=== PATIENT | male | born 1950 | race African-American/Black ===

== ENCOUNTER 2017-05-18 14:05 | Inpatient (IN) | payer OTHER, MEDICARE ==
[~2017-05-18] VITALS: Ht 182.9 cm; Wt 90.0 kg
[2017-05-18 14:07] VITALS: BP 103/62; PULSE 124; RESP 28; TEMP 98.9; O2SAT 92
--- NOTE | 2017-05-18 14:35 | PD ---
Physical Exam Time Seen by Provider: 14:34 Narrative 67 y/o male with dizziness, weakness, confusion for one week, worse today. One episode today of brbpr according to family members Vital signs reviewed. seen at triage desk. Awaiting bed placement. Data Data Last Documented VS Vital Signs Date Time Temp Pulse Resp B/P Pulse Ox O2 Delivery O2 Flow Rate FiO2 05/18/17 14:07 98.9 124 28 103/62 92 Room Air [facility] Medical Record Reviewed: Yes Supervised Visit with BRITTNEY: No Kaiden Borjas May 18, 2017 14:35
[2017-05-18 16:09] VITALS: BP_SYST 104; BP_SYST 125; BP_SYST 128; BP_DIAS 70; BP_DIAS 71; RESP 18; RESP 20
[2017-05-18 16:11] VITALS: BP 125/71; PULSE 114; RESP 18; O2SAT 92
[2017-05-18] MEDS ORDERED: SODIUM CHLOR 0.9% 1000 ML INJ 1,000 ML IV SCH ×2 (16:20→20:37)
[2017-05-18] MEDS ORDERED: CLON0.1T PO (16:39)
[2017-05-18] MEDS ORDERED: LANTUS2P SQ (16:39)
[2017-05-18] MEDS ORDERED: METF1000 PO (16:59)
[2017-05-18] MEDS ORDERED: LEVO.075 PO (16:59)
[2017-05-18] MEDS ORDERED: LOVA40TA PO (16:59)
[2017-05-18] MEDS ORDERED: GLIP5TAB8 PO (17:00)
[2017-05-18] MEDS ORDERED: PLAV75TA29 PO (17:00)
[2017-05-18] MEDS ORDERED: ENAL10TA PO (17:00)
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
--- NOTE | 2017-05-18 17:25 | RADRPT ---
EXAM DATE/TIME: 05/18/2017 16:40 [facility] COMPARISON: No previous studies available for comparison. INDICATIONS : Cough. MEDICAL HISTORY : Carcinoma, lung. SURGICAL HISTORY : None. ENCOUNTER: Initial ACUITY: >1 year PAIN SCORE: 0/10 LOCATION: Bilateral chest FINDINGS: There is reported history of lung carcinoma. There is an apical density on the right with volume loss presumably related to history of lung carcinoma. There is previous right thoracotomy. There is also some hazy opacity at the right lung base. Left lung relatively clear. No effusion. No pneumothorax th e heart size within normal limits. CONCLUSION: 1. Probable treated lung cancer on the right with previous right thoracotomy and persistent apical de nsity and volume loss. There is also some hazy airspace disease in the right lung base. No prior stud y for comparison. Cannot exclude residual tumor or infectious infiltrate at the right base. Junior Martell MD on May 18, 2017 at 17:21 Board Certified Radiologist. This report was verified electronically.
--- NOTE | 2017-05-18 19:39 | RADRPT ---
EXAM DATE/TIME: 05/18/2017 18:20 [facility] COMPARISON: No previous studies available for comparison. INDICATIONS : Patient complains of dizziness, confusion and weakness. RADIATION DOSE: 56.77 CTDIvol (mGy) MEDICAL HISTORY : Carcinoma, lung. SURGICAL HISTORY : cardiac surgery ENCOUNTER: Initial ACUITY: 1 day PAIN SCALE: 0/10 LOCATION: cranial TECHNIQUE: Multiple contiguous axial images were obtained of the head. Using automated exposure control and adj ustment of the mA and/or kV according to patient size, radiation dose was kept as low as reasonably a chievable to obtain optimal diagnostic quality images. DICOM format image data is available electro nically for review and comparison. FINDINGS: CEREBRUM: The ventricles are normal for age. No evidence of midline shift, mass lesion, hemorrhage or acute in farction. No extra-axial fluid collections are seen. POSTERIOR FOSSA: The cerebellum and brainstem are intact. The 4th ventricle is midline. The cerebellopontine angle i s unremarkable. EXTRACRANIAL: The visualized portion of the orbits is intact. SKULL: The calvaria is intact. No evidence of skull fracture. CONCLUSION: Negative noncontrast CT brain. Eric Jackson MD on May 18, 2017 at 19:35 Board Certified Radiologist. This report was verified electronically.
[2017-05-18 20:28] LABS: AUTOMATED NEUTROPHIL # 11.5 TH/MM3 (1.8-7.7); BASOPHIL % 0.1 % (0.0-2.0); HEMATOCRIT 34.6 % (39.0-51.0); HEMO FLAGS DIFF FINAL; LYMPH % 5.8 % (9.0-44.0); LYMPHOCYTE # 0.8 TH/MM3 (1.0-4.8); MEAN CELL VOLUME 81.2 FL (80.0-100.0); MEAN CORPUSCULAR HEMOGLOBIN 26.7 PG (27.0-34.0); MEAN CORPUSCULAR HGB CONC 32.8 % (32.0-36.0); MONO % 6.5 % (0.0-8.0); NEUT % 87.6 % (16.0-70.0); PLATELET COUNT 332 TH/MM3 (150-450); RED BLOOD COUNT 4.26 MIL/MM3 (4.50-5.90); RED CELL DISTRIBUTION WIDTH 15.3 % (11.6-17.2); WHITE BLOOD COUNT 13.1 TH/MM3 (4.0-11.0)
[2017-05-18 20:35] LABS: ANION GAP 11 MEQ/L (5-15); AST (GOT) 9 U/L (15-37); BICARBONATE 24.6 MEQ/L (21.0-32.0); BLOOD UREA NITROGEN 24 MG/DL (7-18); CHLORIDE 99 MEQ/L (98-107); GLOMERULAR FILTRATION RATE 56 ML/MIN (>89); POTASSIUM 3.5 MEQ/L (3.5-5.1); SODIUM (NA) 135 MEQ/L (136-145)
[2017-05-18] MEDS ORDERED: cefTRIAXone INJ 1,000 MG in SODIUM CHLORIDE 0.9% INJ 25 ML IV ONE (20:45)
[2017-05-18 20:46] LABS: ALKALINE PHOSPHATASE 71 U/L (45-117); ALT (GPT) 9 U/L (12-78)
[2017-05-18 20:47] LABS: APTT (PATIENT) 27.3 SEC (24.3-30.1); INTERNATIONAL NORMALIZED RATIO 1.3 RATIO; PROTHROMBIN TIME - PATIENT 14.6 SEC (9.8-11.6)
[2017-05-18 21:09] LABS: BLOOD, URINE NEG (NEG); GLUCOSE,URINE TRACE mg/dL (NEG); HYALINE CAST, URINE 2 /lpf (RARE); KETONE, URINE 10 mg/dL (NEG); MUCUS URINE FEW /lpf (OCC); NITRITE,URINE NEG (NEG); PH, URINE 5.5 (5.0-8.5); SQUAMOUS EPITHELIAL CELL URINE 1 /hpf (0-5)
[2017-05-18 21:11] LABS: URINE COLOR ORANGE (YELLW/STRAW)
[2017-05-18 21:12] LABS: COMMENT (UR) CULT NOT INDICATED; CULTURE IF INDICATED CULT NOT INDICATED
[2017-05-18 21:14] LABS: CREATINE KINASE 72 U/L (39-308)
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
[2017-05-18] MEDS ORDERED: IOHEXOL 350 MG/ML 10 ML VIAL (for RAD DIAG) IV ONE (21:57)
--- NOTE | 2017-05-18 22:14 | RADRPT ---
EXAM DATE/TIME: 05/18/2017 21:41 [facility] COMPARISON: CHEST SINGLE AP, May 18, 2017, 16:40. INDICATIONS : Syncopal episode. IV CONTRAST: 65 cc Omnipaque 350 (iohexol) IV RADIATION DOSE: 20.17 CTDIvol (mGy) MEDICAL HISTORY : Carcinoma, lung. SURGICAL HISTORY : None. ENCOUNTER: Initial ACUITY: 1 day PAIN SCALE: 0/10 LOCATION: chest TECHNIQUE: Volumetric scanning of the chest was performed using a pulmonary embolism protocol MIP images were re constructed. Using automated exposure control and adjustment of the mA and/or kV according to patien t size, radiation dose was kept as low as reasonably achievable to obtain optimal diagnostic quality images. DICOM format image data is available electronically for review and comparison. Follow-up recommendations for incidentally detected pulmonary nodules are based at a minimum on nodul e size and patient risk factors according to Fleischner Society Guidelines. FINDINGS: PULMONARY ARTERIES: No filling defects are seen in the pulmonary arteries through the segmental level. LUNGS: History of right lung carcinoma with interstitial opacities medially in the upper and midlung, consol idation medially, and an elongated cavitary area posterior medial extending from the upper chest down to the level of the oanh. There is irregular thickened wall about this is cavitation and multiple calcifications scattered throughout. There is deformity of the adjacent ribs. In the right lower l obe, there are prominent areas of consolidation occupying most of the posterior segments and a smalle r patchy infiltrate in the lateral right midlung. The left lung appears clear. PLEURAE: There is no pleural thickening or pleural effusion. MEDIASTINUM: The subcarinal node is enlarged at 2.2 cm. There is diffuse thickening of the wall of the esophagus. Coronary artery calcifications. CONCLUSION: 1. The study is negative for pulmonary embolism. 2. History of right lung cancer with consolidative interstitial opacities in the medial right chest s uggesting radiation pneumonitis. Which in this area, however, there is a elongated area of cavitatio n with thick wall. 3. Multiple areas of consolidative infiltrate in the right lower lobe and in the lateral right lung. 4. Several enlarged middle mediastinal nodes. Eric Jackson MD on May 18, 2017 at 22:06 Board Certified Radiologist. This report was verified electronically.
[2017-05-18] MEDS ORDERED: AZITHROMYCIN INJ 500 MG in SODIUM CHLOR 0.9% 250 ML INJ 250 ML IV ONE (22:30)
[2017-05-18 23:00] VITALS: BP 108/77; PULSE 96; RESP 20; O2SAT 96
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
[2017-05-18] MEDS ORDERED: ACETAMINOPHEN/HYDROcodone 325 MG/5 MG TAB PO PRN (23:15)
[2017-05-18] MEDS ORDERED: SENNOSIDES 8.6 MG TAB PO PRN (23:15)
[2017-05-18] MEDS ORDERED: LACTULOSE SYRUP 20 GM/30 ML CUP PO PRN (23:15)
[2017-05-18] MEDS ORDERED: SODIUM CHLORIDE 0.9% FLUSH 10 ML FLUSH IV FLUSH PRN (23:15)
[2017-05-18] MEDS ORDERED: MAGNESIUM HYDROXIDE SUSP 30 ML CUP PO PRN (23:15)
[2017-05-18] MEDS ORDERED: GLUCAGON 1 MG/ML VIAL OTHER PRN (23:15)
[2017-05-18] MEDS ORDERED: ACETAMINOPHEN/HYDROcodone 325 MG/10 MG TAB PO PRN (23:15)
[2017-05-18] MEDS ORDERED: ONDANSETRON HCL 4 MG/2 ML VIAL IVP PRN (23:15)
[2017-05-18] MEDS ORDERED: ACETAMINOPHEN 325 MG TAB PO PRN (23:15)
[2017-05-18] MEDS ORDERED: DEXTROSE 50% IN WATER 50 ML VIAL(D50) IV PRN (23:15)
[2017-05-18] MEDS ORDERED: BISACODYL 10 MG SUPP RECTAL PRN (23:15)
[2017-05-19] VITALS (7 sets, daily range): BP systolic 110–151; BP diastolic 64–72; PULSE 88–116; RESP 20–22; TEMP 97.5–99.6; O2SAT 91–95
[2017-05-19] MEDS: SODIUM CHLOR 0.9% 1000 ML INJ 1,000 ML IV SCH ×3 (00:23→19:02)
[2017-05-19] MEDS: INSULIN ASPART SUPPLEMENTAL SCALE SQ SCH ×4 (06:12→22:20)
[2017-05-19] MEDS: SODIUM CHLORIDE 0.9% FLUSH 10 ML FLUSH IV FLUSH SCH ×2 (09:00→21:00)
[2017-05-19] MEDS: DOCUSATE SODIUM 50 MG/SENNA 8.6 MG TAB PO SCH ×2 (09:43→21:00)
[2017-05-19] MEDS: guaiFENesin E.R. 600 MG TAB PO SCH ×2 (09:43→22:16)
[2017-05-19] MEDS: HEPARIN SODIUM - SQ 10,000 UNITS/ML VIAL SQ SCH ×2 (09:44→22:15)
[2017-05-19] MEDS: RESP: ALBUTEROL 2.5 MG/IPRATROPIUM 0.5 MG NEB (PRN) NEB ×3 (10:02→20:46)
[2017-05-19] MEDS: BUDESONIDE-FORMOTEROL 160/4.5 MCG INHALER INH SCH ×2 (11:44→21:00)
--- NOTE | 2017-05-19 12:07 | EKG ---
Date Performed: 05/18/2017 Time Performed: 16:23:41 PTAGE: 67 years EKG: Sinus tachycardia MODERATE VOLTAGE CRITERIA FOR LVH, CONSIDER NORMAL VARIANT MODERATE T-WAV E ABNORMALITY, CONSIDER LATERAL ISCHEMIA ABNORMAL ECG PREVIOUS TRACING : 04/04/1996 14.17 No change compared to prior study. DOCTOR: David Cadena Interpretating Date/Time 05/19/2017 12:06:38
--- NOTE | 2017-05-19 13:05 | HHI.PR ---
Subjective Remarks Follow-up for pneumonia Shortness of breath is better, dizziness has resolved, confusion is better. Still with generalized weakness, still coughing. Objective Vitals Vital Signs Date Time Temp Pulse Resp B/P Pulse Ox O2 Delivery O2 Flow Rate FiO2 05/19/17 12:00 98.4 105 20 130/72 95 05/19/17 08:00 97.5 96 20 117/64 95 05/19/17 04:00 97.7 88 22 110/69 94 05/19/17 00:00 98.2 104 22 116/68 94 05/19/17 00:00 95 18 120/65 94 Nasal Cannula 2 05/18/17 23:00 96 20 108/77 96 Nasal Cannula 2 05/18/17 16:11 114 18 125/71 92 Room Air 05/18/17 16:11 113 20 92 Room Air 05/18/17 16:09 124 20 128/70 126 20 104/71 113 18 125/71 05/18/17 14:07 98.9 124 28 103/62 92 Room Air I/O 05/18/17 05/18/17 05/18/17 05/19/17 05/19/17 05/19/17 06:59 14:59 22:59 06:59 14:59 22:59 Intake Total 1034 ml 120 ml Output Total 125 ml Balance 909 ml 120 ml Intake Oral 240 ml 120 ml IV Total 794 ml Output Urine Total 125 ml Result Diagram: 05/18/17193405/18/171934 Objective Remarks Not in distress, well-nourished, looks stated age PERRL, pink conjunctiva without injection, anicteric Normal rate and regular rhythm, no murmurs gallops or rubs appreciated. No wheezing or crackles, rhonchi or shortness of breath sounds. Normal bowel sounds, soft, non-tender, nondistended, no guarding. Extremities without clubbing, cyanosis, or edema. No rash of generalized distribution. Skin is warm and dry. Alert, awake, oriented to place, person and time, moves extremities. A/P Problem List: (1) Sepsis ICD Code: A41.9 Status: Acute (2) PNA (pneumonia) ICD Code: J18.9 Status: Acute (3) SPIKE (acute kidney injury) ICD Code: N17.9 Status: Acute (4) COPD (chronic obstructive pulmonary disease) ICD Code: J44.9 Status: Acute (5) DM (diabetes mellitus) ICD Code: E11.9 Status: Acute Assessment and Plan This is a 67-year-old male presenting with dizziness, confusion and shortness of breath. Sepsis secondary to pneumonia- S/p Blood Cultures, continue Rocephin/Zithro in ER. CXR w/ probable treated lungs CTA with previous right thoracotomy and persistent apical density. CTA Pulm negative for PE, consolidative interstitial opacities suggesting radiation pneumonitis and multiple areas of consolidative infiltrate right lower lobe and lateral right lung. Continue DuoNeb prn, Mucinex. Follow-up cultures SPIKE: Creatinine 1.50, previously 1.09 on 10/20/09. U/a negative for UTI. IVF for hydration, check BMP tomorrow COPD: Chronic Respiratory Failure. Stable. Resume home MDI/Neb. DM: Sliding scale w/ Accu-Cheks, hold Metformin in light of sepsis/renal insufficiency. DVT Prophylaxis: SCD/Teds. Consult physical therapy Henri Langley MD May 19, 2017 13:05
[2017-05-19 15:13] LABS: AUTOMATED NEUTROPHIL # 7.5 TH/MM3 (1.8-7.7); BASOPHIL % 0.2 % (0.0-2.0); EOSINOPHIL % 0.1 % (0.0-4.0); HEMATOCRIT 33.6 % (39.0-51.0); HEMO FLAGS DIFF FINAL; LYMPH % 8.5 % (9.0-44.0); LYMPHOCYTE # 0.8 TH/MM3 (1.0-4.8); MEAN CELL VOLUME 80.8 FL (80.0-100.0); MEAN CORPUSCULAR HGB CONC 33.4 % (32.0-36.0); MONO % 6.5 % (0.0-8.0); NEUT % 84.7 % (16.0-70.0); PLATELET COUNT 323 TH/MM3 (150-450); RED BLOOD COUNT 4.16 MIL/MM3 (4.50-5.90); RED CELL DISTRIBUTION WIDTH 15.4 % (11.6-17.2); WHITE BLOOD COUNT 8.8 TH/MM3 (4.0-11.0)
[2017-05-19 15:37] LABS: ALT (GPT) 12 U/L (12-78); ANION GAP 7 MEQ/L (5-15); AST (GOT) 11 U/L (15-37); BICARBONATE 28.9 MEQ/L (21.0-32.0); BLOOD UREA NITROGEN 17 MG/DL (7-18); CHLORIDE 102 MEQ/L (98-107); GLOMERULAR FILTRATION RATE 93 ML/MIN (>89); POTASSIUM 3.3 MEQ/L (3.5-5.1); SODIUM (NA) 138 MEQ/L (136-145)
[2017-05-19 15:39] LABS: ALKALINE PHOSPHATASE 72 U/L (45-117); TOTAL BILIRUBIN ADULT 0.7 MG/DL (0.2-1.0)
--- NOTE | 2017-05-19 18:00 | ECHRPT ---
Indication: Cardiomyopathy, unspecified CONCLUSIONS Very technically difficult study. In limited views, the left ventricle appears to have probably mild dysfunction, but overall ejection fraction can not be determined. Trace mitral valve regurgitation. BP: 110 / 69 HR: 88 Rhythm: MEASUREMENTS (Male / Female) Normal Values Technical Quality:Very technically difficult study 2D ECHO LV Diastolic Diameter PLAX 3.9 cm 4.2 - 5.9 / 3.9 - 5.3 cm LV Systolic Diameter PLAX 3.1 cm IVS Diastolic Thickness 1.4 cm 0.6 - 1.0 / 0.6 - 0.9 cm LVPW Diastolic Thickness 1.3 cm 0.6 - 1.0 / 0.6 - 0.9 cm LV Relative Wall Thickness 0.7 RV Internal Dim ED PLAX 2.0 cm DOPPLER Mitral E Point Velocity 85.7 cm/s Mitral A Point Velocity 107.0 cm/s Mitral E to A Ratio 0.8 FINDINGS LEFT VENTRICLE Very technically difficult study In limited views, the left ventricle appears to have mild dysfunction, but overall ejection fraction can not be determined. There was limited left ventricular wall motion assessment due to poor endocardial visualization. RIGHT VENTRICLE The right ventricle was not well visualized. LEFT ATRIUM The left atrium was not well visualized. RIGHT ATRIUM The right atrium is not well visualized. ATRIAL SEPTUM The interatrial septum not well visualized. AORTA The aortic root and proximal ascending aorta are not well visualized. MITRAL VALVE Grossly normal. No mitral valve stenosis. Trace mitral valve regurgitation. AORTIC VALVE The aortic valve is not well visualized. TRICUSPID VALVE The tricuspid valve is not well visualized. PULMONARY VALVE The pulmonary valve is not well visualized. VESSELS The inferior vena cava was not well visualized. Dash Bowden DO (Electronically Signed) Final Date:19 May 2017 17:59
[2017-05-19] MEDS: AZITHROMYCIN INJ 500 MG in SODIUM CHLOR 0.9% 250 ML INJ 250 ML IV SCH (22:09)
[2017-05-20] VITALS (9 sets, daily range): BP systolic 108–193; BP diastolic 67–93; PULSE 80–129; RESP 20–23; TEMP 95.7–99.5; O2SAT 90–96
[2017-05-20] MEDS: cefTRIAXone INJ 1,000 MG in SODIUM CHLORIDE 0.9% INJ 100 ML IV SCH ×2 (00:19→21:44)
[2017-05-20] MEDS: RESP: ALBUTEROL 2.5 MG/IPRATROPIUM 0.5 MG NEB (PRN) NEB (01:36)
[2017-05-20] MEDS: SODIUM CHLOR 0.9% 1000 ML INJ 1,000 ML IV SCH (05:02)
[2017-05-20] MEDS ORDERED: FUROSEMIDE 20 MG/2 ML VIAL IV PUSH ONE ×2 (05:15→10:00)
[2017-05-20] MEDS ORDERED: methylPREDNISolone SOD SUCC 125 MG/2 ML VIAL IV PUSH ONE (05:15)
[2017-05-20] MEDS: INSULIN ASPART SUPPLEMENTAL SCALE SQ SCH ×4 (05:26→22:03)
[2017-05-20] MEDS: HEPARIN SODIUM - SQ 10,000 UNITS/ML VIAL SQ SCH ×2 (08:28→21:00)
[2017-05-20] MEDS: DOCUSATE SODIUM 50 MG/SENNA 8.6 MG TAB PO SCH ×2 (08:28→21:00)
[2017-05-20] MEDS: SODIUM CHLORIDE 0.9% FLUSH 10 ML FLUSH IV FLUSH SCH ×2 (08:28→21:00)
[2017-05-20] MEDS: guaiFENesin E.R. 600 MG TAB PO SCH ×2 (08:28→21:44)
[2017-05-20] MEDS: BUDESONIDE-FORMOTEROL 160/4.5 MCG INHALER INH SCH ×2 (08:29→21:00)
[2017-05-20] MEDS: cloNIDine HCL 0.1 MG TAB PO SCH ×2 (09:35→21:45)
[2017-05-20] MEDS: CLOPIDOGREL 75 MG TAB PO SCH (09:35)
[2017-05-20] MEDS: ENALAPRIL MALEATE 10 MG TAB PO SCH ×2 (09:35→21:45)
[2017-05-20] MEDS: metFORMIN HCL 500 MG TAB PO SCH ×2 (09:35→16:43)
[2017-05-20] MEDS: LEVOTHYROXINE SODIUM 75 MCG TAB PO SCH (09:38)
--- NOTE | 2017-05-20 09:59 | HHI.PR ---
Subjective Remarks Follow for shortness of breath Patient had an episode of shortness of breath last night, better this morning but a lot rhonchorous. Still coughing a lot of greenish to yellowish secretions , afebrile. No nausea or vomiting. Blood Pressure elevated, denies any headache or chest pain. Objective Vitals Vital Signs Date Time Temp Pulse Resp B/P Pulse Ox O2 Delivery O2 Flow Rate FiO2 05/20/17 08:00 99.5 125 22 144/79 91 05/20/17 04:00 97.7 129 22 193/93 92 05/20/17 01:37 96 Nasal Cannula 3.00 05/20/17 00:00 97.9 117 22 156/76 90 05/19/17 21:00 115 05/19/17 20:00 99.6 116 22 151/72 91 05/19/17 12:00 98.4 105 20 130/72 95 I/O 05/19/17 05/19/17 05/19/17 05/20/17 05/20/17 05/20/17 07:00 15:00 23:00 07:00 15:00 23:00 Intake Total 1034 ml 1080 ml 340 ml 2611 ml Output Total 125 ml 700 ml 500 ml 500 ml Balance 909 ml 380 ml -160 ml 2111 ml Intake Oral 240 ml 1080 ml 340 ml 240 ml IV Total 794 ml 2371 ml Output Urine Total 125 ml 700 ml 500 ml 500 ml # Bowel Movements 0 Result Diagram: 05/19/17 1357 05/19/17 [address] Angiography 05/18/171 Signed Impressions: Service Date/Time: May 21:41 - CONCLUSION: 1. The study is negative for pulmonary embolism. 2. History of right lung cancer with consolidative interstitial opacities in the medial right chest suggesting radiation pneumonitis. Which in this area, however, there is a elongated area of cavitation with thick wall. 3. Multiple areas of consolidative infiltrate in the right lower lobe and in the lateral right lung. 4. Several enlarged middle mediastinal nodes. Eric Jackson MD Head CT 05/18/17 1619 Signed Impressions: Service Date/Time: May 18:20 - CONCLUSION: Negative noncontrast CT brain. Eric Jackson MD Chest X-Ray 05/18/17 1128 Signed Impressions: Service Date/Time: May 16:40 - CONCLUSION: 1. Probable treated lung cancer on the right with previous right thoracotomy and persistent apical density and volume loss. There is also some hazy airspace disease in the right lung base. No prior study for comparison. Cannot exclude residual tumor or infectious infiltrate at the right base. Junior Martell MD Objective Remarks Not in distress, coughing. PERRL, pink conjunctiva without injection, anicteric Borderline tachycardic, no murmurs. Breath sounds rhonchorous today, occasional wheezing. Coughing. Normal bowel sounds, soft, non-tender, nondistended, no guarding. Extremities without clubbing, cyanosis, or edema. Alert, awake, oriented to place, person and time, moves extremities. A/P Problem List: (1) Sepsis ICD Code: A41.9 Status: Acute (2) PNA (pneumonia) ICD Code: J18.9 Status: Acute (3) SPIKE (acute kidney injury) ICD Code: N17.9 Status: Acute (4) COPD (chronic obstructive pulmonary disease) ICD Code: J44.9 Status: Acute (5) DM (diabetes mellitus) ICD Code: E11.9 Status: Acute Assessment and Plan This is a 67-year-old male presenting with dizziness, confusion and shortness of breath. Sepsis secondary to pneumonia - CXR w/ probable treated lungs CTA with previous right thoracotomy and persistent apical density. CTA Pulm negative for PE, consolidative interstitial opacities suggesting radiation pneumonitis and multiple areas of consolidative infiltrate right lower lobe and lateral right lung. -Continue ceftriaxone and azithromycin *05/19--), Continue DuoNeb prn, add DuoNeb 's [id number] every 6 hours, continue Mucinex, start incentive spirometry , would give one dose of Lasix, monitor urine output. Follow-up blood and sputum culture. Leukocytosis resolved, recheck CBC SPIKE: Resolved, stop IVF. Recheck BMP tomorrow. COPD: Chronic Respiratory Failure. Does not appear to be in exacerbation, continue duo nebs, add [id number] bronchodilators as above. DM: Sliding scale w/ Accu-Cheks, restart metformin, Lantus and hold, sliding- scale insulin, blood glucose is controlled. Hypertension, controlled-restart home medications including lisinopril and clonidine, Vasotec as needed DVT Prophylaxis: SCD/Teds. Heparin Consult physical therapy for evaluation. Discharge Planning Discharge when medically ready. Henri Langley MD May 20, 2017 09:59
[2017-05-20] MEDS ORDERED: POTASSIUM CHLORIDE 25 MEQ EFFERVESCENT TAB PO ONE (10:30)
[2017-05-20] MEDS: RESP: ALBUTEROL 2.5 MG/IPRATROPIUM 0.5 MG NEB (SCH) NEB ×2 (11:56→20:55)
[2017-05-20] MEDS: PRAVASTATIN SOD 40 MG TAB PO SCH (21:44)
[2017-05-20] MEDS: AZITHROMYCIN INJ 500 MG in SODIUM CHLOR 0.9% 250 ML INJ 250 ML IV SCH (22:06)
[2017-05-21] VITALS (8 sets, daily range): BP systolic 98–133; BP diastolic 62–81; PULSE 84–109; RESP 16–20; TEMP 96–97.8; O2SAT 90–98
[2017-05-21] MEDS: LEVOTHYROXINE SODIUM 75 MCG TAB PO SCH (05:00)
[2017-05-21] MEDS: INSULIN ASPART SUPPLEMENTAL SCALE SQ SCH ×4 (05:06→21:00)
[2017-05-21] MEDS: HEPARIN SODIUM - SQ 10,000 UNITS/ML VIAL SQ SCH ×2 (09:00→21:00)
[2017-05-21] MEDS: BUDESONIDE-FORMOTEROL 160/4.5 MCG INHALER INH SCH ×2 (09:00→21:00)
[2017-05-21] MEDS: RESP: ALBUTEROL 2.5 MG/IPRATROPIUM 0.5 MG NEB (SCH) NEB ×3 (09:22→19:03)
[2017-05-21] MEDS: guaiFENesin E.R. 600 MG TAB PO SCH ×2 (09:25→21:56)
[2017-05-21] MEDS: DOCUSATE SODIUM 50 MG/SENNA 8.6 MG TAB PO SCH ×2 (09:25→21:00)
[2017-05-21] MEDS: metFORMIN HCL 500 MG TAB PO SCH ×2 (09:25→17:02)
[2017-05-21] MEDS: CLOPIDOGREL 75 MG TAB PO SCH (09:25)
[2017-05-21] MEDS: SODIUM CHLORIDE 0.9% FLUSH 10 ML FLUSH IV FLUSH SCH ×2 (09:25→21:00)
[2017-05-21] MEDS: cloNIDine HCL 0.1 MG TAB PO SCH ×2 (09:26→21:56)
[2017-05-21] MEDS: ENALAPRIL MALEATE 10 MG TAB PO SCH ×2 (09:28→21:56)
--- NOTE | 2017-05-21 09:58 | PQ ---
Physician Query Response Document PATIENT: ASHUTOSH URIBE : 1950 ADMIT DATE: 05/18/2017 10:44 PM DISCH DATE: RESPONDING PROVIDER #: jovanni QUERY TEXT: Sepsis Query Based on your medical judgement, can you further define the character of sepsis 1. Sepsis (without organ dysfunction) 2. Sepsis (with Organ Dysfunction or Lactic Acid >2) 3. Septic Shock: Hypotensive no response to fluids or Lactic Acid >4 The patient's Clinical Indicators include: Admitted with Sepsis, Pneumonia HR-124, RR-28, Temp-97.5, B/p-103/62, WBC-13.1, Lactic acid-1.3 Acute kidney Injury and confusion Query created by: Felisa Vera on 05/19/2017 4:29 PM RESPONSE TEXT: Sepsis with ORgan dysfunction Electronically signed by: Henri Langley MD 05/21/2017 9:54 AM
[2017-05-21 11:57] LABS: AUTOMATED NEUTROPHIL # 9.3 TH/MM3 (1.8-7.7); BASOPHIL % 0.1 % (0.0-2.0); HEMO FLAGS DIFF FINAL; LYMPH % 4.6 % (9.0-44.0); LYMPHOCYTE # 0.5 TH/MM3 (1.0-4.8); MEAN CELL VOLUME 80.1 FL (80.0-100.0); MEAN CORPUSCULAR HEMOGLOBIN 27.6 PG (27.0-34.0); MEAN CORPUSCULAR HGB CONC 34.5 % (32.0-36.0); MONO % 5.8 % (0.0-8.0); NEUT % 89.5 % (16.0-70.0); PLATELET COUNT 376 TH/MM3 (150-450); RED BLOOD COUNT 4.24 MIL/MM3 (4.50-5.90); RED CELL DISTRIBUTION WIDTH 15.4 % (11.6-17.2); WHITE BLOOD COUNT 10.4 TH/MM3 (4.0-11.0)
[2017-05-21 12:21] LABS: BICARBONATE 29.4 MEQ/L (21.0-32.0); POTASSIUM 3.4 MEQ/L (3.5-5.1)
--- NOTE | 2017-05-21 13:53 | HHI.PR ---
Subjective Remarks Follow-up for pneumonia On 2 L of oxygen, feels better, cough is better, shortness of breath better but not back to normal. -500 cc overnight Objective Vitals Vital Signs Date Time Temp Pulse Resp B/P Pulse Ox O2 Delivery O2 Flow Rate FiO2 05/21/17 12:00 96.3 109 16 110/65 95 05/21/17 09:20 93 Nasal Cannula 3.00 05/21/17 08:00 96.8 104 18 133/75 98 05/21/17 04:24 96.0 97 18 119/65 95 05/21/17 00:05 96.9 98 18 98/62 96 05/20/17 20:50 94 Nasal Cannula 3.00 05/20/17 20:20 96.8 80 20 108/67 95 05/20/17 16:00 96.0 111 21 133/75 90 I/O 05/20/17 05/20/17 05/20/17 05/21/17 05/21/17 05/21/17 07:00 15:00 23:00 07:00 15:00 23:00 Intake Total 2611 ml 1200 ml 280 ml 280 ml Output Total 500 ml 1325 ml 380 ml 600 ml Balance 2111 ml -125 ml -100 ml -320 ml Intake Oral 240 ml 1200 ml 280 ml 280 ml IV Total 2371 ml 0 ml Output Urine Total 500 ml 1325 ml 380 ml 600 ml # Bowel Movements 1 Result Diagram: 05/21/17 0951 05/21/17 0951 Objective Remarks Not in distress, coughing. PERRL, pink conjunctiva without injection, anicteric Regular rate and rhythm, no murmurs. Breath sounds rhonchorous still, no wheezing. Coughing is better. Normal bowel sounds, soft, non-tender, nondistended, no guarding. Extremities without clubbing, cyanosis, or edema. Alert, awake, oriented to place, person and time, moves extremities. A/P Problem List: (1) Sepsis ICD Code: A41.9 Status: Acute (2) PNA (pneumonia) ICD Code: J18.9 Status: Acute (3) SPIKE (acute kidney injury) ICD Code: N17.9 Status: Acute (4) COPD (chronic obstructive pulmonary disease) ICD Code: J44.9 Status: Acute (5) DM (diabetes mellitus) ICD Code: E11.9 Status: Acute Assessment and Plan This is a 67-year-old male presenting with dizziness, confusion and shortness of breath. Sepsis secondary to pneumonia - CXR w/ probable treated lungs CTA with previous right thoracotomy and persistent apical density. CTA Pulm negative for PE, consolidative interstitial opacities suggesting radiation pneumonitis and multiple areas of consolidative infiltrate right lower lobe and lateral right lung. -Continue ceftriaxone and azithromycin (05/19--), Continue DuoNeb prn, add DuoNeb 's [id number] every 6 hours, continue Mucinex, continue incentive spirometry, no good response to Lasix. Sputum culture grew normal lorenzo. Leukocytosis resolved, recheck CBC. Wean from oxygen, possible discharge in 1- 2 days. SPIKE: Resolved COPD: Chronic Respiratory Failure. Does not appear to be in exacerbation, continue duo nebs, add [id number] bronchodilators as above. DM: Sliding scale w/ Accu-Cheks, restart metformin, Lantus and hold, sliding- scale insulin, blood glucose is controlled. Hypertension, controlled-restart home medications including lisinopril and clonidine, Vasotec as needed Hypokalemia-replaced DVT Prophylaxis: SCD/Teds. Heparin Discharge Planning Discharge when medically ready 1-2 days Henri Langley MD May 21, 2017 13:53
[2017-05-21] MEDS ORDERED: POTASSIUM CHLORIDE 25 MEQ EFFERVESCENT TAB PO ONE (15:15)
[2017-05-21] MEDS: AZITHROMYCIN INJ 500 MG in SODIUM CHLOR 0.9% 250 ML INJ 250 ML IV SCH (21:55)
[2017-05-21] MEDS: cefTRIAXone INJ 1,000 MG in SODIUM CHLORIDE 0.9% INJ 100 ML IV SCH (21:55)
[2017-05-21] MEDS: PRAVASTATIN SOD 40 MG TAB PO SCH (21:56)
[2017-05-22 00:04] VITALS: BP 100/57; PULSE 110; RESP 17; TEMP 99.9; O2SAT 96
[2017-05-22 04:36] VITALS: BP 123/65; PULSE 102; RESP 18; TEMP 98.4; O2SAT 99
[2017-05-22] MEDS: LEVOTHYROXINE SODIUM 75 MCG TAB PO SCH (05:33)
[2017-05-22] MEDS: INSULIN ASPART SUPPLEMENTAL SCALE SQ SCH ×3 (05:37→16:00)
[2017-05-22 08:00] VITALS: BP 130/77; PULSE 102; RESP 18; TEMP 98; O2SAT 96
[2017-05-22 08:06] VITALS: O2SAT 94
[2017-05-22] MEDS: RESP: ALBUTEROL 2.5 MG/IPRATROPIUM 0.5 MG NEB (SCH) NEB ×2 (08:06→13:53)
[2017-05-22] MEDS: BUDESONIDE-FORMOTEROL 160/4.5 MCG INHALER INH SCH (09:00)
[2017-05-22] MEDS: CLOPIDOGREL 75 MG TAB PO SCH (09:05)
[2017-05-22] MEDS: ENALAPRIL MALEATE 10 MG TAB PO SCH (09:05)
[2017-05-22] MEDS: guaiFENesin E.R. 600 MG TAB PO SCH (09:05)
[2017-05-22] MEDS: DOCUSATE SODIUM 50 MG/SENNA 8.6 MG TAB PO SCH (09:05)
[2017-05-22] MEDS: metFORMIN HCL 500 MG TAB PO SCH (09:05)
[2017-05-22] MEDS: HEPARIN SODIUM - SQ 10,000 UNITS/ML VIAL SQ SCH (09:06)
[2017-05-22] MEDS: cloNIDine HCL 0.1 MG TAB PO SCH (09:06)
[2017-05-22] MEDS: SODIUM CHLORIDE 0.9% FLUSH 10 ML FLUSH IV FLUSH SCH (09:06)
[2017-05-22] MEDS ORDERED: WALKER WHEELS/F1 MIS (11:42)
[2017-05-22 12:00] VITALS: BP 118/65; PULSE 111; RESP 20; TEMP 97.6; O2SAT 94
[2017-05-22] MEDS ORDERED: OXYGENDME NAS.CANULA (14:07)
[2017-05-22] MEDS ORDERED: LEVO750T3 PO (14:07)
[2017-05-22] MEDS ORDERED: SYMB160A INH (14:07)
[2017-05-22] MEDS ORDERED: VENTAER INH (14:07)
[2017-05-22 16:00] VITALS: BP 128/72; PULSE 111; RESP 18; TEMP 98.8; O2SAT 94
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
--- NOTE | 2017-05-23 23:23 | MH ---
cc: Carissa LAUREN M.D., VIPIN, MD DATE OF ADMISSION 05/18/2017 This patient is coming in for bronchoscopy. CHIEF COMPLAINT Shortness of breath with persistent cough. HISTORY OF PRESENT ILLNESS This is 67 year-old man with a history of COPD and a history of persistent cough with wheezing, has recently been discharged from the hospital at [place] following treatment of pneumonia. The patient was admitted there with an episode of confusion and dizziness. A chest CT that was done, demonstrated evidence of consolidation and interstitial opacities in the right medial chest suggesting radiation pneumonitis. Also an elongated area of activation with a thick wall and multiple infiltrates in the right lower lobe and several enlarged mediastinal nodes and was negative for pulmonary emboli. The patient was started on IV antibiotics and subsequently switched to an oral antibiotic and discharged on home oxygen at two liters nasal cannula. He has had some low grade fevers and complaints of pains along the lower chest and back but denied hemoptysis, nausea or vomiting. PAST MEDICAL HISTORY 1. History for [id number] lung cancer of the right lung status post right tracheotomy and subsequent radiation and chemotherapy. 2. Pneumonia in the past 3. Diabetes mellitus 4. Hypertension 5. Chronic kidney disease. FAMILY HISTORY Noncontributory HABITS The patient apparently smoked two packs per day for 37 years and then quit 10 years ago. No significant alcohol recently. ALLERGIES No known drug allergies listed. FAMILY HISTORY Father of heart disease. Mother of alcoholism. REVIEW OF SYSTEMS The patient is a poor historian. He has had some weight loss. Denies leg swelling. He has chest tightness, epigastric distress, nausea, no urinary symptoms. No leg or calf muscle pains. He does have some joint pains of his extremities. PHYSICAL EXAMINATION GENERAL: This is an averagely built elderly -[place]ish male was is mildly dysgenic. He is on oxygen. There was mild clubbing of the extremities. VITAL SIGNS: His blood pressure 160/90, pulse is 130, respirations 24, temperature 100.3, weight is 185, saturation 92. HEENT: Head normocephalic. Pupils are reactive. Tongue is moist. Nasal mucosa edematous. Throat is mildly injected NECK: No bruits, no thyroid enlargement or lymphadenopathy. CHEST: Distant breath sounds, expiratory wheezes bilaterally, prolonged expirations with crackles over the right lung field. HEART: The heart sounds are irregular S1-S2. No murmur. No S3. ABDOMEN: Soft, protuberant. No masses or organomegaly. EXTREMITIES: 1+ edema with diminished peripheral pulses. NEUROLOGIC: Reflexes are 1+ with no gross motor deficits. Cranial nerves are grossly intact. RECTAL: Exam is deferred. SKIN: Dry and warm. IMPRESSION 1. Radiation pneumonitis right lung. 2. History of non-small cell lung CA status post radiation therapy. 3. Rule out recurrence of lung CA. 4. Diabetes mellitus 5. Hypertension PLAN The patient has been advised to use Ceftin 500 mg b.i.d. for 10 days, prednisone 10 mg b.i.d. for 2 weeks. He was advised to continue with inhaled Symbicort 160/4.5 two puffs b.i.d. Also continue with Enalapril 20 mg b.i.d. Glimepiride 2 mg a day, Lovastatin 40 mg daily and Lasix 40 mg a day, clonidine 0.2 mg b.i.d. Levothyroxine 75 mcg daily and Metformin 1000 mg b.i.d. The patient was advised to have a bronchoscopy at [facility] to evaluate the right main stem bronchus and to rule out malignancy and the potential risks including bleeding. I will keep you abreast of any new findings. MD JUMA Perdomo/ /10:40 PM /10:54 PM
== END 2017-05-22 17:21 | disposition home or self-care (01) | DRG 872 ==
LOC: NEPD 14:05 → NEDA 22:44 → N07A 05-19 00:45
PROVIDERS: ADMIT Hospitalist; ATTEND Hospitalist
DX: A41.9 Sepsis, unspecified organism (principal); N17.9 Acute kidney failure, unspecified; J70.0 Acute pulmonary manifestations due to radiation; C34.90 Malignant neoplasm of unspecified part of unspecified bronchus or lung; J96.10 Chronic respiratory failure, unspecified whether with hypoxia or hypercapnia; J44.0 Chronic obstructive pulmonary disease with (acute) lower respiratory infection; E87.1 Hypo-osmolality and hyponatremia; K62.5 Hemorrhage of anus and rectum; R55 Syncope and collapse; R65.20 Severe sepsis without septic shock; R00.0 Tachycardia, unspecified; Z92.21 Personal history of antineoplastic chemotherapy; Z92.3 Personal history of irradiation; Z85.118 Personal history of other malignant neoplasm of bronchus and lung; E11.9 Type 2 diabetes mellitus without complications; I10 Essential (primary) hypertension
CPT/HCPCS: 70450; 71010; 71275; 80048; 80053; 81001; 82550; 82948; 83605; 83735; 84443; 84484; 85025; 85610; 85730; 87040; 87070; 87205; 93005; 93306; 94150; 94620; 94640; 94664; 96361; 96374; J0456; J0696; J1644; J1815; J1940; J2930; J7030; J7050; Q9967

== ENCOUNTER → 2017-05-31 | Day surgery (SDC) | payer OTHER ==
[~2017-05-31] VITALS: Ht 180.3 cm; Wt 86.5 kg
[~2017-05-31] MED LIST: *RESP: ALBUTEROL 2.5 MG/3 ML NEB (PRN) PERIprocedural Use ONLY NEB ONE; CHLORHEXIDINE GLUCONATE 2 % 1 PACK (2 CLOTHS) TOPICAL PRN; CLON0.1T PO; DO NOT ADM ANY ANTICOAGULANT DRUGS PRN; ENAL10TA PO; EPINEPHrine HCL (1:1000) 1 MG/ML VIAL ONE; GLIP5TAB8 PO; INSULIN HUMAN REGULAR 1,000 UNITS/10 ML VIAL SQ PRN; LACTATED RINGER'S 1000 ML IV PRN; LANTUS2P SQ; LEVO.075 PO; LEVO750T3 PO; LIDOCAINE HCL 2% PF SOLN 10 ML VIAL ONE; LIDOCAINE VISCOUS 2% SOLN 15 ML UDC ONE; LOVA40TA PO; METF1000 PO; METOPROLOL TARTRATE 25 MG TAB PO PRN; MIDAZOLAM HCL 2 MG/2 ML VIAL ONE; OXYGENDME NAS.CANULA; PHENYLEPH/NS 1000 MCG/10 ML SYR IV ONE; PLAV75TA29 PO; POVIDONE IODINE 5% (ANTISEPSIS KIT) 4 APPLICATIONS EACH NARE PRN; PRED10 PO; PROPOFOL 200 MG/20 ML AMP IV ONE; RESP: ALBUTEROL 2.5 MG/3 ML NEB (PRN) NEB; SODIUM CHLORID 0.9% 500 ML IV PRN; SODIUM CHLORIDE 0.9% 20 ML VIAL ONE; SYMB160A INH; VENTAER INH; WALKER WHEELS/F1 MIS; fentaNYL CITRATE 250 MCG/5 ML AMP ONE
[2017-05-31 10:30] VITALS: BP 156/87; PULSE 97; RESP 18; TEMP 98; O2SAT 94
--- NOTE | 2017-05-31 13:58 | RADRPT ---
EXAM DATE/TIME: 05/31/2017 12:58 [facility] COMPARISON: CT PULMONARY ANGIOGRAM, May 18, 2017, 21:41. CHEST SINGLE AP, May 18, 2017, 16:40. INDICATIONS : Evaluate for pneumothorax post bronchoscopy. Cavitary region in the right upper lobe.. MEDICAL HISTORY : Carcinoma, lung. SURGICAL HISTORY : None. ENCOUNTER: Initial ACUITY: 1 day PAIN SCORE: 2/10 LOCATION: Bilateral chest FINDINGS: A single AP erect portable view of the chest was obtained and demonstrates no evidence of pneumothora x. Consolidative opacity remains in the right upper lobe. There is patchy infiltrate remaining at the right lung base. The heart size is within normal limits. The patient is status post remote right tho racotomy. CONCLUSION: Stable appearance with no pneumothorax. James Reed MD on May 31, 2017 at 13:53 Board Certified Radiologist. This report was verified electronically.
[2017-05-31 15:23] VITALS: BP 144/78; PULSE 104; RESP 20; TEMP 98.3; O2SAT 97
--- NOTE | 2017-06-01 06:23 | MP ---
cc: JAYLAN FAYE MD D'SOUZA, JOHN DATE OF SURGERY 05/31/2017 PROCEDURES Fiberoptic bronchoscopy with biopsies, brushings and washings. ANESTHESIA General with intubation. PREOPERATIVE DIAGNOSIS Persistent right lung infiltrate. POSTOPERATIVE DIAGNOSIS Persistent right lung infiltrate. ANESTHESIA General with intubation. MECHATRONICS TECHNICIAN Preston Isidro MD PROCEDURE AND FINDINGS The patient was intubated under general anesthesia following which the Olympus IT-180 bronchoscope was used to visualize the bronchi. The scope was advanced via the endotracheal tube into the trachea. The trachea and oanh appeared normal. The scope was then advanced to the right mainstem bronchus. At the takeoff of the right mainstem going into the right upper lobe bronchus there was mucosal ridging with edema of the mucosa and also some cobblestoning of the mucosa. The right upper lobe bronchial opening was narrowed and the mucosa was friable. Brushings were done from here for cytology. Biopsies were done as well with minimal bleeding observed, controlled with epinephrine solution. Next the scope was advanced into the bronchus intermedius which also had cobblestoning of the mucosa leading into the right middle lobe bronchus. The right middle lobe bronchus showed narrowing of the lumen with ridging of the mucosa and cobblestoning and washings were done from here. The scope was also advanced to the right lower lobe bronchus which showed mucosal ridging with narrowing of the lumen of the bronchus by about 50%. Washings were done and the scope was then advanced into the left mainstem and left upper lobe segmental bronchi. These bronchi demonstrated no gross endobronchial lesions. Next the left lower lobe bronchi were visualized which showed no endobronchial lesions. Saline washings were done. The procedure was then terminated. The patient tolerated the procedure well. Preston Isidro MD JVD/ARVIND /12:54 PM /6:11 AM
--- NOTE | 2017-06-01 09:23 | EKG ---
Date Performed: 05/31/2017 Time Performed: 12:08:43 PTAGE: 67 years EKG: Sinus rhythm WITH MARKED SINUS ARRHYTHMIA NONSPECIFIC T-WAVE ABNORMALITY BORDERLINE ECG PREVIOUS TRACING : 05/18/2017 16.23 Compared to prior tracing no significant change DOCTOR: Tam Morales Interpretating Date/Time 06/01/2017 09:10:10
== END | disposition home or self-care (01) ==
LOC: HSDC 09:36
DX: J98.4 Other disorders of lung (principal); R91.8 Other nonspecific abnormal finding of lung field; I10 Essential (primary) hypertension; I25.10 Atherosclerotic heart disease of native coronary artery without angina pectoris; J44.9 Chronic obstructive pulmonary disease, unspecified; E11.9 Type 2 diabetes mellitus without complications; D64.9 Anemia, unspecified; Z85.118 Personal history of other malignant neoplasm of bronchus and lung; Z01.810 Encounter for preprocedural cardiovascular examination; Z95.5 Presence of coronary angioplasty implant and graft; Z87.891 Personal history of nicotine dependence; Z79.01 Long term (current) use of anticoagulants; Z79.84 Long term (current) use of oral hypoglycemic drugs; Z79.4 Long term (current) use of insulin; Z79.51 Long term (current) use of inhaled steroids; Z79.52 Long term (current) use of systemic steroids; Z79.899 Other long term (current) drug therapy
CPT/HCPCS: 00520; 31625; 71010; 87015; 87070; 87102; 87116; 87205; 87206; 88112; 88305; 88312; 93005; J0171; J2250; J2370; J3010; J7120; J7613